=== PATIENT | male | born 1985 | race African-American/Black ===

== ENCOUNTER 2018-11-26 08:20 | Emergency (ER) | payer SELFPAY ==
[~2018-11-26] VITALS: Ht 182.9 cm; Wt 74.8 kg
[2018-11-26 08:29] VITALS: BP_SYST 150
[2018-11-26] MEDS ORDERED: BACITRACIN 1 GM OINT TP ONE (09:00)
[2018-11-26] MEDS ORDERED: LIDOCAINE 1% 10 MG/ML, 20 ML MDV IJ ONE (09:00)
[2018-11-26] MEDS ORDERED: DIPH-TET-PERTUS Vaccine 0.5 ML VIAL (ADACEL) IM ONE (09:00)
[2018-11-26 09:55] VITALS: BP_SYST 132
== END 2018-11-26 09:55 | disposition home or self-care (01) ==
LOC: SED 08:20
DX: S61.212A Laceration without foreign body of right middle finger without damage to nail, initial encounter (principal); W22.8XXA Striking against or struck by other objects, initial encounter; F17.210 Nicotine dependence, cigarettes, uncomplicated; Y93.89 Activity, other specified; Y92.89 Other specified places as the place of occurrence of the external cause; Y99.8 Other external cause status
CPT/HCPCS: 12002; 90471; 90715; 99283; J2001

== ENCOUNTER 2018-11-29 08:37 | Emergency (ER) | payer SELFPAY ==
[~2018-11-29] VITALS: Ht 182.9 cm; Wt 74.8 kg
[2018-11-29 08:45] VITALS: BP_SYST 144
--- NOTE | 2018-11-29 08:47 | NUR ---
Patient to ER bed 8 to gown for evaluation. Side rails up. Report given to Mina BRADFORD.
--- NOTE | 2018-11-29 08:52 | NUR ---
Pt presents to ED for wound check.Wound is clean,dry well approximated.No s/s infection.Pt denies fever.
--- NOTE | 2018-11-29 08:53 | NUR ---
ER at bedside examining patient.
[2018-11-29 08:55] VITALS: BP_SYST 144
--- NOTE | 2018-11-29 09:06 | NUR ---
Patient given written and verbal discharge instructions and verbalizes understanding. ER MD discussed with patient the results and treatment provided. Patient in stable condition. ID arm band removed. no Rx given. Patient educated on pain management and to follow up with PMD. Pain Scale 0. Opportunity for questions provided and answered. Medication side effect fact sheet provided.
== END 2018-11-29 09:06 | disposition home or self-care (01) ==
LOC: SED 08:37
DX: S61.212D Laceration without foreign body of right middle finger without damage to nail, subsequent encounter (principal); W22.8XXD Striking against or struck by other objects, subsequent encounter
CPT/HCPCS: 99282

== ENCOUNTER 2018-12-08 10:34 | Emergency (ER) | payer SELFPAY ==
[~2018-12-08] VITALS: Ht 182.9 cm; Wt 74.8 kg
[2018-12-08 10:35] VITALS: BP_SYST 149
[2018-12-08 11:17] VITALS: BP_SYST 149
== END 2018-12-08 11:11 | disposition home or self-care (01) ==
LOC: SED 10:34
DX: S61.212D Laceration without foreign body of right middle finger without damage to nail, subsequent encounter (principal); R03.0 Elevated blood-pressure reading, without diagnosis of hypertension; W22.8XXD Striking against or struck by other objects, subsequent encounter
CPT/HCPCS: 99281